=== PATIENT | male | born 1985 | race African-American/Black ===

== ENCOUNTER 2017-08-15 19:29 | Emergency (ER) | payer SELFPAY ==
[2017-08-15] MEDS ORDERED: HYDROCODONE/APAP 10/325 TAB ONE (20:22)
[2017-08-15] MEDS ORDERED: CEFAZOLIN SODIUM 1 GM/VIAL ONE (20:22)
[2017-08-15] MEDS ORDERED: TETANUS & DIPHTHERIA TOX,ADULT 0.5 ML VIAL ONE (20:23)
[2017-08-15] MEDS ORDERED: LIDOCAINE 1% W/EPI 1:100,000 MDV 50 ML VIAL ONE (21:01)
--- NOTE | 2017-08-15 21:19 | RAD REPORT ---
EXAM DESCRIPTION: RAD - Forearm Left - 08/15/2017 8:25 pm CLINICAL HISTORY: Forearm pain, laceration COMPARISON: None. FINDINGS: No fracture is identified. There is no dislocation or periosteal reaction noted. No foreign body or other soft tissue abnormality. IMPRESSION: Negative left forearm examination. No foreign body.
--- NOTE | 2017-08-15 21:34 | EDPHYS ---
Physician Documentation [facility] Name: Cuong Hennessy Age: 32 yrs Sex: Male : 1985 Arrival Date: 08/15/2017 Time: 19:31 Bed 14 Private MD: ED Physician Drew English HPI: 08/15 21:23 This 32 yrs old Black Male presents to ER via Ambulatory with complaints of right arm kdr injury/puncture wound. 21:23 The patient or guardian complains of contusion, injury, a laceration, 2.5 cm(s), clean, kdr pain, that is acute, penetrating injury, Possible foreign body, swelling. The complaints affect the palmar aspect of right forearm. Context: The problem was sustained at home, on a street or driveway, resulted from a fall, a penetrating injury. Onset: The symptoms/episode began/occurred acutely, suddenly, just prior to arrival. Treatment prior to arrival includes: no previous treatment. Modifying factors: The symptoms are alleviated by nothing. the symptoms are aggravated by movement. Associated signs and symptoms: The patient has no apparent associated signs or symptoms. Severity of symptoms: At their worst the symptoms were mild, just prior to arrival, moderate, in the emergency department the symptoms are unchanged. The patient has not experienced similar symptoms in the past. Historical: - Allergies: 19:34 No Known Allergies; aj - Home Meds: 19:34 None [Active]; aj - PMHx: 19:34 None; aj - PSHx: 19:34 None; aj - Immunization history:: Adult Immunizations unknown, Last tetanus immunization: unknown. - Social history:: Smoking status: Patient uses tobacco products, smokes one pack cigarettes per day. - Ebola Screening: : Patient negative for fever greater than or equal to 101.5 degrees Fahrenheit, and additional compatible Ebola Virus Disease symptoms Patient denies exposure to infectious person Patient denies travel to an Ebola-affected area in the 21 days before illness onset No symptoms or risks identified at this time. ROS: 21:23 Constitutional: Negative for fever, chills, and weight loss, Eyes: Negative for injury, kdr pain, redness, and discharge. 21:23 Skin: Positive for laceration(s), swelling, of the palmar aspect of right forearm. 21:23 Neuro: Positive for The patient has diffuse subjective numbness to the right hand distal to the apparent laceration/puncture. Exam: 21:23 Musculoskeletal/extremity: Extremities: grossly normal except: noted in the palmar kdr aspect of right forearm: laceration, pain, swelling. 21:23 Skin: injury, laceration(s), the wound is approximately 2.5 cm(s), of the palmar aspect of right forearm. 22:04 Constitutional: This is a well developed, well nourished patient who is awake, alert, kdr and in no acute distress. Vital Signs: 19:34 BP 131 / 69; Pulse 121; Resp 20; Temp 97.4; Pulse Ox 98% on R/A; Weight 81.65 kg; aj Height 6 ft. 0 in. (182.88 cm); 20:45 BP 120 / 78; Pulse 90; Resp 18; Temp 97.8(O); Pulse Ox 100% on R/A; Pain 0/10; ea 21:30 BP 128 / 60; Pulse 80; Resp 18; Temp 98.0; Pulse Ox 99% on R/A; Pain 0/10; ea 19:34 Body Mass Index 24.41 (81.65 kg, 182.88 cm) aj Laceration: 21:23 Wound Repair of 2.5cm ( 1.0in ) subcutaneous laceration to palmar aspect of right kdr forearm. Neuro:Tingling distal to wound. Vascular:Intact distal to wound. Tendon:Intact distal to wound. Anesthesia: Local anesthetic administered with 4 mls of 1% lidocaine w/ Epi. Wound prep: Extensive cleansing with betadine, Wound irrigation with saline, Wound explored moderately. Skin closed with 4 4-0 Prolene using running sutures and sterile technique. Dressed with Bacitracin, 4x4's, Kerlix, non-adherent dressing. Patient tolerated well. MDM: 21:23 Data reviewed: vital signs, nurses notes, lab test result(s), radiologic studies, plain kdr films. Counseling: I had a detailed discussion with the patient and/or guardian regarding: the historical points, exam findings, and any diagnostic results supporting the discharge/admit diagnosis, lab results, radiology results, the need for outpatient follow up, a orthopedic surgeon, a plastic surgeon. 21:33 Patient medically screened. 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 Exp: ea 09/30/2019. Lot #: [id number]. } Route: IM; Site: left gluteus; 22:03 Follow up: Response: No adverse reaction; Marked relief of symptoms ea 20:30 Drug: Everett 10 mg-325 mg 1 tabs Route: PO; ea 20:55 Follow up: Response: No adverse reaction; Marked relief of symptoms ea 20:31 Drug: Ancef 1 grams Route: IM; Site: left gluteus; ea 22:05 Follow up: Response: No adverse reaction ea Disposition: 08/15/17 21:33 Discharged to Home. Impression: Left forearm laceration, numbness to left arm distal to wound. - Condition is Stable. - Discharge Instructions: Laceration Care, Adult, [id number]. - Prescriptions for Keflex 500 mg Oral Capsule - take 1 capsule by ORAL route every 6 hours for 10 days; 40 capsule. Tramadol 50 mg Oral Tablet - take 1 tablet by ORAL route every 8 hours as needed; 12 tablet. - Medication Reconciliation Form, Thank You Letter, Antibiotic Education form. - Follow up: Private Physician; When: 2 - 3 days; Reason: If symptoms return, Further diagnostic work-up, Recheck today's complaints, Continuance of care, Re-evaluation by your physician. Follow up: Raj Saxena MD; When: 2 - 3 days; Reason: If symptoms return, Further diagnostic work-up, Recheck today's complaints, Continuance of care, Re-evaluation by your physician. - Problem is new. - Symptoms have improved. - Notes: Sutures out in 7 - 10 days Signatures: Dispatcher [employer] MS Priest, Ambar, RN RN aj Rittger, Drew, MD MD kdr Rivas, Reina, RN RN ea Corrections: (The following items were deleted from the chart) 20:15 20:12 Forearm Left W Comparison+RAD.RAD.BRZ ordered. EDMI EDMS 22:01 21:33 08/15/2017 21:33 Discharged to Home. Impression: Left forearm laceration, ea numbness to left arm distal to wound. Condition is Stable. Forms are Medication Reconciliation Form, Thank You Letter, Antibiotic Education, Prescription Opioid Use. Follow up: Private Physician; When: 2 - 3 days; Reason: If symptoms return, Further diagnostic work-up, Recheck today's complaints, Continuance of care, Re-evaluation by your physician. Follow up: Raj Saxena; When: 2 - 3 days; Reason: If symptoms return, Further diagnostic work-up, Recheck today's complaints, Continuance of care, Re-evaluation by your physician. Problem is new. Symptoms have improved. kdr
--- NOTE | 2017-08-15 21:34 | ER ---
Nurse's Notes 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 Transition of care: patient was not received from another setting of care. Onset of symptoms was August 15, 2017. Risk Assessment: Do you want to hurt yourself or someone else? Patient reports no desire to harm self or others. Initial Sepsis Screen: Does the patient meet any 2 criteria? No. Patient's initial sepsis screen is negative. Does the patient have a suspected source of infection? No. Patient's initial sepsis screen is negative. Care prior to arrival: None. 19:33 Method Of Arrival: Ambulatory aj 19:33 Acuity: FAM 4 aj Triage Assessment: 19:34 General: Appears in no apparent distress. comfortable, Behavior is calm, cooperative, aj appropriate for age. Pain: Complains of pain in palmar aspect of right forearm. Neuro: Level of Consciousness is awake, alert, obeys commands, Oriented to person, place, time, situation, Appropriate for age. Respiratory: Airway is patent Trachea midline Respiratory effort is even, unlabored, Respiratory pattern is regular, symmetrical. Derm: Skin is intact, is healthy with good turgor, Skin is pink, warm \T\ dry. normal. Injury Description: Laceration sustained to palmar aspect of right forearm is 0.5 to 2.5 cm long, was sustained less than 30 minutes ago. no active bleeding noted at this time. Historical: - Allergies: 19:34 No Known Allergies; aj - Home Meds: 19:34 None [Active]; aj - PMHx: 19:34 None; aj - PSHx: 19:34 None; aj - Immunization history:: Adult Immunizations unknown, Last tetanus immunization: unknown. - Social history:: Smoking status: Patient uses tobacco products, smokes one pack cigarettes per day. - Ebola Screening: : Patient negative for fever greater than or equal to 101.5 degrees Fahrenheit, and additional compatible Ebola Virus Disease symptoms Patient denies exposure to infectious person Patient denies travel to an Ebola-affected area in the 21 days before illness onset No symptoms or risks identified at this time. Screenin:53 Abuse screen: Denies threats or abuse. Nutritional screening: No deficits noted. ea Tuberculosis screening: No symptoms or risk factors identified. Fall Risk None identified. Assessment: 19:49 General: Appears uncomfortable, Behavior is cooperative. Pain: Complains of pain in ea palmar aspect of right forearm Pain does not radiate. Pain currently is 9 out of 10 on a pain scale. Quality of pain is described as aching. Neuro: Level of Consciousness is awake, alert, obeys commands, Oriented to person, place, time, situation. Cardiovascular: Patient's skin is warm and dry. Respiratory: Airway is patent Respiratory effort is even, unlabored, Respiratory pattern is regular, symmetrical. GI: No signs and/or symptoms were reported involving the gastrointestinal system. Abdomen is non-distended. : No signs and/or symptoms were reported regarding the genitourinary system. EENT: No signs and/or symptoms were reported regarding the EENT system. Derm: Skin is dry, Skin is normal, Skin temperature is warm. Musculoskeletal:. Musculoskeletal: Circulation, motion, and sensation intact. Injury Description: Laceration sustained to palmar aspect of right forearm is clean, 2.6 to 7.5 cm long, bleeding moderately, was sustained 30-60 minutes ago. 20:00 Reassessment: Patient and/or family updated on plan of care and expected duration. Pain ea level reassessed. Patient is alert, oriented x 3, equal unlabored respirations, skin warm/dry/pink. 21:50 Reassessment: Patient and/or family updated on plan of care and expected duration. Pain ea level reassessed. Patient is alert, oriented x 3, equal unlabored respirations, skin warm/dry/pink. Discharge instruction given to patient, verbalized the understanding of instruction. Vital Signs: 19:34 BP 131 / 69; Pulse 121; Resp 20; Temp 97.4; Pulse Ox 98% on R/A; Weight 81.65 kg; aj Height 6 ft. 0 in. (182.88 cm); 20:45 BP 120 / 78; Pulse 90; Resp 18; Temp 97.8(O); Pulse Ox 100% on R/A; Pain 0/10; ea 21:30 BP 128 / 60; Pulse 80; Resp 18; Temp 98.0; Pulse Ox 99% on R/A; Pain 0/10; ea 19:34 Body Mass Index 24.41 (81.65 kg, 182.88 cm) ED Course: 19:31 Patient arrived in ED. al2 19:34 Triage completed. aj 19:34 Arm band placed on left wrist. Patient placed in an exam room. aj 19:43 Drew English MD is Attending Physician. kdr 19:49 Reina Rivas RN is Primary Nurse. ea 19:53 Patient has correct armband on for positive identification. Bed in low position. Call ea light in reach. Side rails up X2. 20:23 X-ray completed. Portable x-ray completed in exam room. Patient tolerated procedure kp1 well. 20:24 Forearm Left In Process Unspecified. EDMS 21:15 Assist provider with laceration repair. ea 21:31 Raj Saxena MD is Referral Physician. kdr 21:57 Patient did not have IV access during this emergency room visit. 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 Exp: ea 09/30/2019. Lot #: [id number]. } Route: IM; Site: left gluteus; 22:03 Follow up: Response: No adverse reaction; Marked relief of symptoms ea 20:30 Drug: Swink 10 mg-325 mg 1 tabs Route: PO; ea 20:55 Follow up: Response: No adverse reaction; Marked relief of symptoms ea 20:31 Drug: Ancef 1 grams Route: IM; Site: left gluteus; ea 22:05 Follow up: Response: No adverse reaction ea Outcome: 21:33 Discharge ordered by . kdr 21:50 Discharged to home ambulatory. ea 21:50 Condition: improved 21:50 Discharge instructions given to patient, Instructed on discharge instructions, follow up and referral plans. medication usage, Demonstrated understanding of instructions, follow-up care, medications, Prescriptions given X 2. 22:01 Patient left the ED. ea Signatures: Dispatcher [employer] EDAmbar Meadows RN RN aj Rittger, Kevin, MD MD kdr Emma Zapien kp1 Reina Rivas RN RN adalberto Graham, Harriet al2
[2017-08-15 22:10] VITALS: BP 128/60; TEMP 98; O2SAT 99
== END 2017-08-15 22:01 | disposition home or self-care (01) ==
LOC: ER 19:29
PROC: 0JQG0ZZ Repair Right Lower Arm Subcutaneous Tissue and Fascia, Open Approach (ICD-10-PCS; principal; 2017-08-15)
DX: S51.811A Laceration without foreign body of right forearm, initial encounter (principal); W18.30XA Fall on same level, unspecified, initial encounter; Y93.9 Activity, unspecified; Y92.014 Private driveway to single-family (private) house as the place of occurrence of the external cause; F17.210 Nicotine dependence, cigarettes, uncomplicated; Z23 Encounter for immunization
CPT/HCPCS: 90714; 96372; 99284; J0690

== ENCOUNTER 2017-10-06 11:40 | Emergency (ER) | payer SELFPAY ==
--- NOTE | 2017-10-06 13:36 | EDPHYS ---
Physician Documentation [facility] Name: Cuong Hennessy Age: 32 yrs Sex: Male : 1985 Arrival Date: 10/06/2017 Time: 11:42 Bed Treatment Private MD: None, None ED Physician Fernando Bolaños HPI: 10/06 13:56 This 32 yrs old Black Male presents to ER via Ambulatory with complaints of Cough, snw Congestion. 13:56 The patient or guardian reports cough, described as moderate, described as severe, with snw no sputum. Onset: The symptoms/episode began/occurred suddenly, 1 week(s) ago, and became persistent. Associated signs and symptoms: Pertinent positives: unable to sleep second to cough. The patient has experienced a previous episode. offered oral steroids, pt request injection instead. Historical: - Allergies: 11:44 No Known Allergies; aa5 - PMHx: 11:44 None; aa5 - PSHx: 11:44 None; aa5 - Immunization history:: Adult Immunizations up to date. - Social history:: Smoking status: Patient uses tobacco products, smokes one-half pack cigarettes per day. - Ebola Screening: : No symptoms or risks identified at this time. ROS: 13:53 Constitutional: Negative for fever, chills, and weight loss, Eyes: Negative for injury, snw pain, redness, and discharge, ENT: Negative for injury, pain, and discharge, Neck: Negative for injury, pain, and swelling, Cardiovascular: Negative for chest pain, palpitations, and edema, Abdomen/GI: Negative for abdominal pain, nausea, vomiting, diarrhea, and constipation, Back: Negative for injury and pain, : Negative for injury, bleeding, discharge, and swelling, MS/Extremity: Negative for injury and deformity, Skin: Negative for injury, rash, and discoloration, Neuro: Negative for headache, weakness, numbness, tingling, and seizure. 13:53 Respiratory: Positive for cough. Exam: 13:53 Constitutional: This is a well developed, well nourished patient who is awake, alert, snw and in no acute distress. Head/Face: Normocephalic, atraumatic. Eyes: Pupils equal round and reactive to light, extra-ocular motions intact. Lids and lashes normal. Conjunctiva and sclera are non-icteric and not injected. Cornea within normal limits. Periorbital areas with no swelling, redness, or edema. ENT: Nares patent. No nasal discharge, no septal abnormalities noted. Tympanic membranes are normal and external auditory canals are clear. Oropharynx with no redness, swelling, or masses, exudates, or evidence of obstruction, uvula midline. Mucous membranes moist. Neck: Trachea midline, no thyromegaly or masses palpated, and no cervical lymphadenopathy. Supple, full range of motion without nuchal rigidity, or vertebral point tenderness. No Meningismus. Chest/axilla: Normal chest wall appearance and motion. Nontender with no deformity. No lesions are appreciated. Cardiovascular: Regular rate and rhythm with a normal S1 and S2. No gallops, murmurs, or rubs. Normal PMI, no JVD. No pulse deficits. Abdomen/GI: Soft, non-tender, with normal bowel sounds. No distension or tympany. No guarding or rebound. No evidence of tenderness throughout. Back: No spinal tenderness. No costovertebral tenderness. Full range of motion. Skin: Warm, dry with normal turgor. Normal color with no rashes, no lesions, and no evidence of cellulitis. MS/ Extremity: Pulses equal, no cyanosis. Neurovascular intact. Full, normal range of motion. Neuro: Awake and alert, GCS 15, oriented to person, place, time, and situation. Cranial nerves II-XII grossly intact. Motor strength 5/5 in all extremities. Sensory grossly intact. Cerebellar exam normal. Normal gait. Psych: Awake, alert, with orientation to person, place and time. Behavior, mood, and affect are within normal limits. 13:53 Respiratory: the patient does not display signs of respiratory distress, Respirations: shallow respirations, that is mild, Breath sounds: are clear throughout, bronchitic cough. Vital Signs: 11:44 BP 129 / 80; Pulse 75; Resp 16 S; Temp 98.9(TE); Pulse Ox 98% on R/A; Weight 81.65 kg aa5 (R); Height 5 ft. 11 in. (180.34 cm) (R); Pain 8/10; 13:00 BP 120 / 80; Pulse 70; Resp 18; Temp 98.6(TE); Pulse Ox 98% on R/A; dm5 11:44 Body Mass Index 25.10 (81.65 kg, 180.34 cm) aa5 MDM: 13:01 Patient medically screened. snw 13:54 Data reviewed: vital signs, nurses notes. Data interpreted: Pulse oximetry: on room air snw is 98 %. Interpretation: normal. Counseling: I had a detailed discussion with the patient and/or guardian regarding: the historical points, exam findings, and any diagnostic results supporting the discharge/admit diagnosis, the presence of at least one elevated blood pressure reading (>120/80) during this emergency department visit, the need for outpatient follow up, for definitive care, to return to the emergency department if symptoms worsen or persist or if there are any questions or concerns that arise at home, smoking cessation. Special discussion: I have referred the patient to see his PCP for further evaluation of high blood pressure. Based on the history and exam findings, there is no indication for further emergent testing or inpatient evaluation. I discussed with the patient/guardian the need to see the primary care provider for further evaluation of the symptoms. Administered Medications: 13:48 Drug: SOLU-Medrol 125 mg Route: IM; Site: right gluteus; dm5 Disposition: 10/07 12:08 Co-signature as Attending Physician, Fernando Bolaños MD I agree with the assessment and shira plan of care. Disposition: 10/06/17 13:36 Discharged to Home. Impression: Cough. - Condition is Stable. - Discharge Instructions: Steps to Quit Smoking, Smoking Hazards, Cool Mist Vaporizer, Cough, Adult, [id number]. - Prescriptions for Zyrtec 10 mg Oral Tablet - take 1 tablet by ORAL route once daily As needed; 20 tablet. Tessalon Perles 100 mg Oral Capsule - take 1 capsule by ORAL route every 8 hours As needed; 15 capsule. - Work release form, Medication Reconciliation Form, Thank You Letter, Antibiotic Education, Prescription Opioid Use form. - Follow up: Private Physician; When: 2 - 3 days; Reason: Recheck today's complaints, Continuance of care, Re-evaluation by your physician. Follow up: Emergency Department; When: As needed; Reason: Worsening of condition. Signatures: Radha Longoria RN RN dm5 Fernando Bolaños MD MD cha Therrien, Shelly, INDUSTRIAL MAINTENANCE REPAIRER-C INDUSTRIAL MAINTENANCE REPAIRER-Csnw Randee Rhodes RN RN aa5 Corrections: (The following items were deleted from the chart) 10/06 13:59 13:36 10/06/2017 13:36 Discharged to Home. Impression: Cough. Condition is Stable. dm5 Forms are Medication Reconciliation Form, Thank You Letter, Antibiotic Education, Prescription Opioid Use. Follow up: Private Physician; When: 2 - 3 days; Reason: Recheck today's complaints, Continuance of care, Re-evaluation by your physician. Follow up: Emergency Department; When: As needed; Reason: Worsening of condition. snw
--- NOTE | 2017-10-06 13:36 | ER ---
Nurse's Notes [facility] Name: Cuong Hennessy Age: 32 yrs Sex: Male : 1985 Arrival Date: 10/06/2017 Time: 11:42 Bed Treatment Private MD: None, None Diagnosis: Cough Presentation: 10/06 11:43 Presenting complaint: Patient states: cough, congestion, and sore throat since aa5 yesterday. Transition of care: patient was not received from another setting of care. Onset of symptoms was October 05, 2017. Risk Assessment: Do you want to hurt yourself or someone else? Patient reports no desire to harm self or others. Initial Sepsis Screen: Does the patient meet any 2 criteria? No. Patient's initial sepsis screen is negative. Does the patient have a suspected source of infection? No. Patient's initial sepsis screen is negative. Care prior to arrival: None. 11:43 Method Of Arrival: Ambulatory aa5 11:43 Acuity: FAM 4 aa5 Historical: - Allergies: 11:44 No Known Allergies; aa5 - PMHx: 11:44 None; aa5 - PSHx: 11:44 None; aa5 - Immunization history:: Adult Immunizations up to date. - Social history:: Smoking status: Patient uses tobacco products, smokes one-half pack cigarettes per day. - Ebola Screening: : No symptoms or risks identified at this time. Screenin:00 Abuse screen: Denies threats or abuse. Denies injuries from another. Nutritional dm5 screening: No deficits noted. Tuberculosis screening: No symptoms or risk factors identified. Fall Risk None identified. Assessment: 13:00 General: Appears in no apparent distress. Behavior is calm, cooperative. Pain: dm5 Complains of pain in chest Aggravated by coughing. Neuro: Level of Consciousness is awake, alert, obeys commands, Oriented to person, place, time. Cardiovascular: Capillary refill < 3 seconds Patient's skin is warm and dry. Respiratory: Airway is patent Respiratory effort is even, unlabored, relaxed, Respiratory pattern is regular, symmetrical, Breath sounds are clear bilaterally. Derm: Skin is pink, warm \T\ dry. Vital Signs: 11:44 BP 129 / 80; Pulse 75; Resp 16 S; Temp 98.9(TE); Pulse Ox 98% on R/A; Weight 81.65 kg aa5 (R); Height 5 ft. 11 in. (180.34 cm) (R); Pain 8/10; 13:00 BP 120 / 80; Pulse 70; Resp 18; Temp 98.6(TE); Pulse Ox 98% on R/A; dm5 11:44 Body Mass Index 25.10 (81.65 kg, 180.34 cm) aa5 ED Course: 11:42 Patient arrived in ED. mr 11:42 None, None is Private Physician. mr 11:44 Triage completed. aa5 11:44 Arm band placed on. aa5 12:42 Hayde Acuna FNP-C is PHCP. snw 12:42 Fernando Bolaños MD is Attending Physician. snw 13:00 Patient has correct armband on for positive identification. Call light in reach. dm5 13:00 No provider procedures requiring assistance completed. Patient did not have IV access dm5 during this emergency room visit. 13:39 Radha Longoria, RN is Primary Nurse. dm5 Administered Medications: 13:48 Drug: SOLU-Medrol 125 mg Route: IM; Site: right gluteus; dm5 Outcome: 13:36 Discharge ordered by . snw 13:58 Discharged to home ambulatory. dm5 13:58 Condition: good 13:58 Discharge instructions given to patient, Instructed on discharge instructions, follow up and referral plans. medication usage, Demonstrated understanding of instructions, follow-up care, medications, Prescriptions given X 2. 13:59 Patient left the ED. dm5 Signatures: Radha Longoria, RN RN dm5 Hayde Acuna FNP-C FNP-Radha Salcedo mr RhodesRandee, RN RN aa5
[2017-10-06] MEDS ORDERED: METHYLPREDNISOLONE 125 MG INJ ONE (13:46)
[2017-10-06 14:11] VITALS: O2SAT 98
[2017-10-06 14:12] VITALS: BP 120/80; TEMP 98.6
== END 2017-10-06 13:59 | disposition home or self-care (01) ==
LOC: ER 11:40
DX: R05 Cough (principal); F17.210 Nicotine dependence, cigarettes, uncomplicated
CPT/HCPCS: 96372; 99283; J2930

== ENCOUNTER 2018-05-25 07:31 | Emergency (ER) | payer SELFPAY ==
[2018-05-25] MEDS ORDERED: IBUPROFEN 400 MG TAB ONE (08:05)
[2018-05-25] MEDS ORDERED: IBUPROFEN 200 MG TAB PO ONE (08:05)
[2018-05-25] MEDS ORDERED: OSELTAMIVIR 75 MG CAP ONE (08:48)
--- NOTE | 2018-05-25 08:49 | ER ---
Nurse's Notes [facility] Name: Cuong Hennessy Age: 33 yrs Sex: Male : 1985 Arrival Date: 05/25/2018 Time: 07:34 Bed 14 Private MD: None, None Diagnosis: Influenza due to identified novel influenza A virus Presentation: 05/25 07:35 Presenting complaint: Patient states: cough, fever and body aches that began yesterday. ss Transition of care: patient was not received from another setting of care. Onset of symptoms was May 24, 2018. Risk Assessment: Do you want to hurt yourself or someone else? Patient reports no desire to harm self or others. Initial Sepsis Screen: Does the patient meet any 2 criteria? No. Patient's initial sepsis screen is negative. Does the patient have a suspected source of infection? No. Patient's initial sepsis screen is negative. Care prior to arrival: None. 07:35 Method Of Arrival: Ambulatory ss 07:35 Acuity: FAM 4 ss Triage Assessment: 07:45 General: Appears in no apparent distress. uncomfortable, Behavior is calm, cooperative, ph appropriate for age, Reports chills for 12-24 hours, fever for 12-24 hours. Neuro: Level of Consciousness is awake, alert, obeys commands, Oriented to person, place, time, situation. Respiratory: Airway is patent Trachea midline Respiratory effort is even, unlabored, Respiratory pattern is regular. Derm: Skin is intact, is healthy with good turgor, Skin is dry, Skin is pink, warm \T\ dry. Musculoskeletal: Circulation, motion, and sensation intact. Capillary refill < 3 seconds, in bilateral. Historical: - Allergies: 07:37 No Known Allergies; ss - Home Meds: 07:37 None [Active]; ss - PMHx: 07:37 None; ss - PSHx: 07:37 None; ss - Immunization history:: Flu vaccine is not up to date. - Social history:: Smoking status: Patient uses tobacco products, smokes one-half pack cigarettes per day, . - Ebola Screening: : Patient denies exposure to infectious person Patient denies travel to an Ebola-affected area in the 21 days before illness onset. Screenin:03 Abuse screen: Denies threats or abuse. Nutritional screening: No deficits noted. ph Tuberculosis screening: No symptoms or risk factors identified. Fall Risk None identified. Assessment: 05/26 08:45 Reassessment: Patient appears in no apparent distress at this time. Patient and/or ph family updated on plan of care and expected duration. Pain level reassessed. Patient is alert, oriented x 3, equal unlabored respirations, skin warm/dry/pink. Vital Signs: 05/25 07:37 Pulse 97; Resp 17; Temp 100.5(TE); Pulse Ox 96% on R/A; Weight 90.72 kg; Height 5 ft. ss 11 in. (180.34 cm); Pain 8/10; 07:38 BP 115 / 73; ss 07:54 Temp 103.0(O); ph 08:37 BP 111 / 65; Pulse 87; Resp 17; Temp 103.2; Pulse Ox 100% on R/A; dh3 09:18 Temp 101.2(O); ph 07:37 Body Mass Index 27.89 (90.72 kg, 180.34 cm) ED Course: 07:34 Patient arrived in ED. dl4 07:35 None, None is Private Physician. dl4 07:35 Marah Mills [facility]C [facility]. kb 07:35 Fernando Bolaños MD is Attending Physician. kb 07:36 Triage completed. ss 07:37 Arm band placed on right wrist. ss 07:41 Nicole eL, RN is Primary Nurse. ph 08:04 Bed in low position. Call light in reach. ph 09:01 Throat Culture Sent. ph 09:34 No provider procedures requiring assistance completed. Patient did not have IV access ph during this emergency room visit. Administered Medications: 07:54 Drug: Ibuprofen 600 mg Route: PO; ph 09:01 Follow up: Response: Temperature is unchanged ph 08:42 Drug: Tamiflu 75 mg Route: PO; ph 09:02 Follow up: Response: No adverse reaction ph 08:57 Drug: Tylenol 1000 mg Route: PO; ph 09:25 Follow up: Response: No adverse reaction; Temperature is decreased ph Outcome: 08:48 Discharge ordered by . kb 09:35 Discharged to home ambulatory, with family. ph 09:35 Condition: improved 09:35 Discharge instructions given to patient, family, Instructed on discharge instructions, medication usage, safety practices. 09:42 Patient left the ED. ph Signatures: Marah Mills, BRICK CHIMNEY BUILDER-C BRICK CHIMNEY BUILDER-Mayra Motley RN RN Nicole Le RN RN Lauren Greene [facility] 4 Corrections: (The following items were deleted from the chart) 08:02 07:45 Pain: Denies pain. ph
--- NOTE | 2018-05-25 08:49 | EDPHYS ---
Physician Documentation [facility] Name: Cuong Hennessy Age: 33 yrs Sex: Male : 1985 Arrival Date: 05/25/2018 Time: 07:34 Bed 14 Private MD: None, None ED Physician Fernando Bolaños HPI: 05/25 08:08 This 33 yrs old Black Male presents to ER via Ambulatory with complaints of Cough, kb Fever. 08:08 The patient or guardian reports cough, that is intermittent, described as moderate, kb with no sputum, flu symptoms, low-grade fever, myalgias. Onset: The symptoms/episode began/occurred yesterday. Severity of symptoms: At their worst the symptoms were moderate, in the emergency department the symptoms are unchanged. Modifying factors: The symptoms are alleviated by nothing, the symptoms are aggravated by nothing. Associated signs and symptoms: Pertinent positives: fever, Pertinent negatives: chest pain, diarrhea, ear ache, nausea, rhinorrhea, sore throat, vomiting. The patient has not experienced similar symptoms in the past. The patient has not recently seen a physician. Historical: - Allergies: 07:37 No Known Allergies; ss - Home Meds: 07:37 None [Active]; ss - PMHx: 07:37 None; ss - PSHx: 07:37 None; ss - Immunization history:: Flu vaccine is not up to date. - Social history:: Smoking status: Patient uses tobacco products, smokes one-half pack cigarettes per day, . - Ebola Screening: : Patient denies exposure to infectious person Patient denies travel to an Ebola-affected area in the 21 days before illness onset. ROS: 08:06 ENT: Negative for injury, pain, and discharge, Neck: Negative for injury, pain, and kb swelling, Cardiovascular: Negative for chest pain, palpitations, and edema, Abdomen/GI: Negative for abdominal pain, nausea, vomiting, diarrhea, and constipation, Back: Negative for injury and pain, : Negative for injury, bleeding, discharge, and swelling, MS/Extremity: Negative for injury and deformity, Skin: Negative for injury, rash, and discoloration, Neuro: Negative for headache, weakness, numbness, tingling, and seizure. 08:06 Constitutional: Positive for body aches, chills, fatigue, fever, malaise, Negative for poor PO intake, weight loss. 08:06 Respiratory: Positive for cough, Negative for dyspnea on exertion, hemoptysis, orthopnea, pleurisy, shortness of breath, sputum production, wheezing. Exam: 08:06 Constitutional: This is a well developed, well nourished patient who is awake, alert, kb and in no acute distress. Head/Face: Normocephalic, atraumatic. ENT: Nares patent. No nasal discharge, no septal abnormalities noted. Tympanic membranes are normal and external auditory canals are clear. Oropharynx with no redness, swelling, or masses, exudates, or evidence of obstruction, uvula midline. Mucous membranes moist. Neck: Trachea midline, no thyromegaly or masses palpated, and no cervical lymphadenopathy. Supple, full range of motion without nuchal rigidity, or vertebral point tenderness. No Meningismus. Chest/axilla: Normal chest wall appearance and motion. Nontender with no deformity. No lesions are appreciated. Cardiovascular: Regular rate and rhythm with a normal S1 and S2. No gallops, murmurs, or rubs. Normal PMI, no JVD. No pulse deficits. Respiratory: Lungs have equal breath sounds bilaterally, clear to auscultation and percussion. No rales, rhonchi or wheezes noted. No increased work of breathing, no retractions or nasal flaring. Abdomen/GI: Soft, non-tender, with normal bowel sounds. No distension or tympany. No guarding or rebound. No evidence of tenderness throughout. Skin: Warm, dry with normal turgor. Normal color with no rashes, no lesions, and no evidence of cellulitis. MS/ Extremity: Pulses equal, no cyanosis. Neurovascular intact. Full, normal range of motion. Neuro: Awake and alert, GCS 15, oriented to person, place, time, and situation. Cranial nerves II-XII grossly intact. Motor strength 5/5 in all extremities. Sensory grossly intact. Cerebellar exam normal. Normal gait. Vital Signs: 07:37 Pulse 97; Resp 17; Temp 100.5(TE); Pulse Ox 96% on R/A; Weight 90.72 kg; Height 5 ft. ss 11 in. (180.34 cm); Pain 8/10; 07:38 BP 115 / 73; ss 07:54 Temp 103.0(O); ph 08:37 BP 111 / 65; Pulse 87; Resp 17; Temp 103.2; Pulse Ox 100% on R/A; dh3 09:18 Temp 101.2(O); ph 07:37 Body Mass Index 27.89 (90.72 kg, 180.34 cm) MDM: 07:40 Patient medically screened. kb 08:07 Data reviewed: vital signs, nurses notes. Data interpreted: Pulse oximetry: on room air kb is 96 %. Interpretation: normal. Counseling: I had a detailed discussion with the patient and/or guardian regarding: the historical points, exam findings, and any diagnostic results supporting the discharge/admit diagnosis, lab results, the need for outpatient follow up, a family practitioner, to return to the emergency department if symptoms worsen or persist or if there are any questions or concerns that arise at home. 05/25 07:38 Order name: Flu; Complete Time: 08:03 ss 05/25 07:38 Order name: Strep; Complete Time: 08:03 05/25 08:04 Order name: Throat Culture [facility] 05/25 08:25 Order name: Vital Signs; Complete Time: 08:44 kb Administered Medications: 07:54 Drug: Ibuprofen 600 mg Route: PO; ph 09:01 Follow up: Response: Temperature is unchanged ph 08:42 Drug: Tamiflu 75 mg Route: PO; ph 09:02 Follow up: Response: No adverse reaction ph 08:57 Drug: Tylenol 1000 mg Route: PO; ph 09:25 Follow up: Response: No adverse reaction; Temperature is decreased ph Disposition: 15:04 Co-signature as Attending Physician, Fernando Bolaños MD I agree with the assessment and shira plan of care. Disposition: 05/25/18 08:48 Discharged to Home. Impression: Influenza due to identified novel influenza A virus. - Condition is Stable. - Discharge Instructions: Influenza, Adult, [id number]. - Prescriptions for Tamiflu 75 mg Oral Capsule - take 1 capsule by ORAL route every 12 hours for 5 days; 10 capsule. - Medication Reconciliation Form, Thank You Letter, Antibiotic Education, Prescription Opioid Use, Work release form form. - Follow up: Emergency Department; When: As needed; Reason: Worsening of condition. Follow up: Private Physician; When: 2 - 3 days; Reason: Recheck today's complaints, Continuance of care, Re-evaluation by your physician. Signatures: Dispatcher [employer] EDMarah Stevens, TYPE COPYIST-C TYPE COPYIST-Ckb Fernando Bolaños MD MD cha Smirch, Shelby, RN RN ss Nicole Le RN RN ph Corrections: (The following items were deleted from the chart) 09:42 08:48 05/25/2018 08:48 Discharged to Home. Impression: Influenza due to identified ph novel influenza A virus. Condition is Stable. Discharge Instructions: Influenza, Adult, [id number]. Prescriptions for Tamiflu 75 mg Oral Capsule - take 1 capsule by ORAL route every 12 hours for 5 days; 10 capsule. and Forms are Work release form, Medication Reconciliation Form, Thank You Letter, Antibiotic Education, Prescription Opioid Use. Follow up: Emergency Department; When: As needed; Reason: Worsening of condition. Follow up: Private Physician; When: 2 - 3 days; Reason: Recheck today's complaints, Continuance of care, Re-evaluation by your physician. kb
[2018-05-25] MEDS ORDERED: ACETAMINOPHEN 500 MG TAB ONE (09:04)
[2018-05-25 09:51] VITALS: BP 111/65; O2SAT 100
[2018-05-25 09:52] VITALS: TEMP 101.2
== END 2018-05-25 09:42 | disposition home or self-care (01) ==
LOC: ER 07:31
DX: J10.1 Influenza due to other identified influenza virus with other respiratory manifestations (principal)
CPT/HCPCS: 87070; 87081; 87804; 99283